=== PATIENT | male | born 1975 | race Asian ===

== ENCOUNTER 2020-04-30 09:32 | Observation (INO) | payer OTHER ==
[2020-04-30] MEDS ORDERED: ONDANSETRON 4 MG/2 ML VIAL IVP STA (09:44)
[2020-04-30] MEDS ORDERED: SODIUM CHLORIDE 0.9% 1,000 ML IV STA ×3 (09:44→13:12)
[2020-04-30 10:12] LABS: BASOPHILS # (AUTO) 0.1 10^3/uL (0.0-0.1); BASOPHILS % (AUTO) 0.4 %; EOSINOPHILS # (AUTO) 0.1 10^3/uL (0.0-0.7); EOSINOPHILS % (AUTO) 0.5 %; HGB - HEMOGLOBIN 16.1 g/dL (14.0-18.0); LYMPHOCYTES # (AUTO) 2.1 10^3/uL (1.5-3.5); MEAN CORPUSCULAR VOLUME 88.2 fL (80.0-94.0); MEAN PLATELET VOLUME 9.4 fL (7.4-11.4); MONOCYTES # (AUTO) 0.7 10^3/uL (0.0-1.0); NEUTROPHILS # (AUTO) 11.2 10^3/uL (1.5-6.6); NEUTROPHILS % (AUTO) 78.2 %; PLT - PLATELET COUNT 391 10^3/uL (130-450); RED BLOOD COUNT 5.36 10^6/uL (4.70-6.10); RED CELL DISTRIBUTION WIDTH 11.9 % (12.0-15.0); WHITE BLOOD COUNT 14.3 x10^3/uL (4.8-10.8)
[2020-04-30] MEDS ORDERED: PROMETHAZINE INJ 25 MG in SODIUM CHLORIDE 0.9% 50 ML IV STA (10:20)
[2020-04-30 10:26] LABS: ALBUMIN 3.4 g/dL (3.2-5.5); ALBUMIN/GLOBULIN RATIO 1.1 (1.0-2.2); BILIRUBIN,TOTAL 1.4 mg/dL (0.2-1.0); CALCIUM 8.7 mg/dL (8.5-10.3); CREATININE 1.1 mg/dL (0.6-1.2); TOTAL PROTEIN 6.6 g/dL (6.7-8.2)
--- NOTE | 2020-04-30 10:26 | ED Physician Documentation ---
History of Present Illness - Stated complaint Stated Complaint: VOMITING, SHAKES, RODRÍGUEZ - Chief complaint Chief Complaint: Abd Pain - History obtained from History obtained from: Patient - History of Present Illness Timing: How many days ago (3) Pain level max: 4 Pain level now: 3 - Additonal information Additional information: 45-year-old male presents the emergency department stating he has had intermittent nausea, vomiting, diarrhea for the past 3 days. Worse with eating and drinking. Nothing makes it better. He is diabetic. Has not been checking his blood sugar. He states he uses marijuana 1-2 times a week for anxiety and PTSD. No fevers. No recent travel. No blood in the emesis or stool. He st ates that he is just feeling poor overall. No fevers. Has had some chills. Review of Systems Ten Systems: 10 systems reviewed and negative Constitutional: reports: Chills. denies: Fever Ears: denies: Ear pain Nose: denies: Rhinorrhea / runny nose, Congestion Respiratory: denies: Cough GI: reports: Abdominal Pain (Crampy, diffuse), Nausea, Vomiting, Diarrhea. denies: Hematemesis, Bloody / black stool : denies: Dysuria, Frequency, Hesitancy Skin: denies: Rash Musculoskeletal: denies: Neck pain Neurologic: denies: Headache PD PAST MEDICAL HISTORY - Past Medical History Past Medical History: Yes Cardiovascular: Hypertension, High cholesterol Respiratory: None Neuro: None Endocrine/Autoimmune: Type 2 diabetes GI: None : None HEENT: None Psych: Depression, Anxiety, Post traumatic stress disorder Musculoskeletal: None Derm: None - Past Surgical History Past Surgical History: No - Present Medications Home Medications: Ambulatory Orders Medication Instructions Recorded Confirmed metFORMIN [Glucophage] 1,000 mg PO DAILY 04/30/20 04/30/20 - Allergies Allergies/Adverse Reactions: Allergies Allergy/AdvReac Type Severity Reaction Status Date / Time No Known Drug Allergies Allergy Verified 04/30/20 09:39 - Social History Does the pt smoke?: No Smoking Status: Former smoker Does the pt drink ETOH?: Yes Does the pt have substance abuse?: No - Immunizations Immunizations are current?: Yes - POLST Patient has POLST: No PD ED PE NORMAL - Vitals Vital signs reviewed: Yes - General General: Alert and oriented X 3, No acute distress, Well developed/nourished - HEENT HEENT: PERRL, Moist mucous membranes, Pharynx benign - Neck Neck: Supple, no meningeal sign - Cardiac Cardiac: RRR, Strong equal pulses - Respiratory Respiratory: No respiratory distress, Clear bilaterally - Abdomen Abdomen: Normal bowel sounds, Soft, Non tender, Non distended - Back Back: No CVA TTP, No spinal TTP - Derm Derm: Warm and dry - Extremities Extremities: No edema - Neuro Neuro: Alert and oriented X 3 - Psych Psych: Normal mood, Normal affect Results - Vitals Vitals: Vital Signs - 24 hr 04/30/20 04/30/20 04/30/20 09:40 10:01 11:30 Temperature 36.6 C 37 C Heart Rate 62 57 L 60 Respiratory 16 16 16 Rate Blood Pressure 156/77 H 171/95 H 148/92 H O2 Saturation 99 99 98 04/30/20 13:13 Temperature 37.2 C Heart Rate 108 H Respiratory 16 Rate Blood Pressure 154/89 H O2 Saturation 97 Oxygen O2 Source Room air - Labs Labs: Laboratory Tests 04/30/20 04/30/20 04/30/20 09:55 09:55 09:55 WBC 14.3 H RBC 5.36 Hgb 16.1 Hct 47.3 MCV 88.2 MCH 30.0 MCHC 34.0 RDW 11.9 L Plt Count 391 MPV 9.4 Neut # (Auto) 11.2 H Lymph # (Auto) 2.1 [place] # (Auto) 0.7 Eos # (Auto) 0.1 Baso # (Auto) 0.1 Absolute Nucleated RBC 0.00 Nucleated RBC % 0.0 VBG pH VBG pCO2 VBG pO2 VBG HCO3 VBG Total CO2 VBG O2 Saturation VBG Base Excess Sodium 131 L Potassium 3.7 Chloride 91 L Carbon Dioxide 26 Anion Gap 14.0 H BUN 24 H Creatinine 1.1 Estimated GFR (MDRD) 72 L Glucose 328 H Calcium 8.7 Total Bilirubin 1.4 H AST 21 ALT 22 Alkaline Phosphatase 50 Total Protein 6.6 L Albumin 3.4 Globulin 3.2 Albumin/Globulin Ratio 1.1 Lipase 43 Urine Color Urine Clarity Urine pH Ur Specific [place] Urine Protein Urine Glucose (UA) Urine Ketones Urine Occult Blood Urine Nitrite Urine Bilirubin Urine Urobilinogen Ur Leukocyte Esterase Urine RBC Urine WBC Ur Squamous Epith Cells Urine Bacteria Ur Microscopic Review Urine Culture Comments Serum Ketones NEGATIVE 04/30/20 04/30/20 10:35 12:35 WBC RBC Hgb Hct MCV MCH MCHC RDW Plt Count MPV Neut # (Auto) Lymph # (Auto) [place] # (Auto) Eos # (Auto) Baso # (Auto) Absolute Nucleated RBC Nucleated RBC % VBG pH 7.347 VBG pCO2 43.8 VBG pO2 28.0 VBG HCO3 24.0 VBG Total CO2 25.0 VBG O2 Saturation 48.0 L VBG Base Excess -2.0 Sodium Potassium Chloride Carbon Dioxide Anion Gap BUN Creatinine Estimated GFR (MDRD) Glucose Calcium Total Bilirubin AST ALT Alkaline Phosphatase Total Protein Albumin Globulin Albumin/Globulin Ratio Lipase Urine Color YELLOW Urine Clarity CLEAR Urine pH 5.5 Ur Specific [place] 1.025 Urine Protein >=300 H Urine Glucose (UA) 500 H Urine Ketones >=80 H Urine Occult Blood SMALL H Urine Nitrite NEGATIVE Urine Bilirubin NEGATIVE Urine Urobilinogen 0.2 (NORMAL) Ur Leukocyte Esterase NEGATIVE Urine RBC 6-10 H Urine WBC 11-25 H Ur Squamous Epith Cells RARE Squamous Urine Bacteria Rare Ur Microscopic Review INDICATED Urine Culture Comments INDICATED Serum Ketones - Rads (name of study) CT abdomen pelvis Radiology: Prelim report reviewed, EMP read contemporaneously, See rad report ( 1. No acute disease process. . No free fluid or free air. . Appendix is normal. . No dilated loops of bowel. ) PD MEDICAL DECISION MAKING - ED course Complexity details: reviewed results, re-evaluated patient, considered differential, d/w patient ED course: 45-year-old male with continued nausea and vomiting, complicated by hyperglycemia. Given Zofran, Phenergan, IV fluids. Continues to be unable to tolerate p.o. well. We will place him in observation given his diabetes and inability to tolerate p.o. No acute findings on CT scan. Discussed the case with Dr. Pruett, hospitalist who accepts This document was made in part using voice recognition software. While efforts are made to proofread this document, sound alike and grammatical errors may occur. Departure - Departure Disposition: ED Place in Observation Clinical Impression: Hyperglycemia due to diabetes mellitus, Dehydration, Viral gastroenteritis Intractable vomiting Qualifiers: Vomiting type: unspecified Nausea presence: with nausea Qualified Code(s): R11.2 - Nausea with vomiting, unspecified Condition: Stable Discharge Date/Time: 04/30/20 15:53
[2020-04-30 11:01] LABS: VBG PCO2 43.8 mmHg (41-51); VBG PH 7.347 (7.31-7.41)
[2020-04-30 12:46] LABS: BILIRUBIN,URINE NEGATIVE (NEGATIVE); GLUCOSE, URINE (UA) 500 mg/dL (NEGATIVE); KETONES,URINE (UA) >=80 mg/dL (NEGATIVE); LEUKOCYTE ESTERASE, URINE NEGATIVE (NEGATIVE); NITRITE,URINE NEGATIVE (NEGATIVE); OCCULT BLOOD,URINE SMALL (NEGATIVE); PH,URINE 5.5 PH (5.0-7.5); PROTEIN,URINE >=300 mg/dL (NEGATIVE); UROBILINOGEN,URINE 0.2 (NORMAL) E.U./dL (NORMAL)
[2020-04-30 12:48] LABS: CLARITY,URINE CLEAR (CLEAR)
[2020-04-30 13:01] LABS: BACTERIA,URINE Rare /HPF (None Seen); SQUAMOUS EPITHELIAL CELL,UR RARE Squamous (<= Few)
[2020-04-30] MEDS ORDERED: IOVERSOL 320 100 ML VIAL IVP ONE ×2 (13:26→14:40)
--- NOTE | 2020-04-30 14:16 | CT Report ---
PROCEDURE: Abdomen/Pelvis W INDICATIONS: diffuse abd pain, vomiting CONTRAST: IV CONTRAST: Optiray 320 ml: 100 PO CONTRAST: *NO PO CONTRAST TECHNIQUE: After the administration of oral and intravenous contrast, 5 mm thick sections acquired from the diap hragms to the symphysis. 5 mm thick coronal and sagittal reformats were acquired. For radiation dos e reduction, the following was used: automated exposure control, adjustment of mA and/or kV accordin g to patient size. COMPARISON: None. FINDINGS: Image quality: Degraded by patient motion artifact. ABDOMEN: Lung bases: Lung bases are clear. Heart size is normal. Solid organs: Liver and spleen are normal in size and enhancement. Gallbladder is within normal chavez its Biliary system is non dilated. Pancreas enhances normally. No adrenal nodules. Kidneys demons trate normal size and enhancement, without hydronephrosis. Peritoneum and bowel: Bowel loops demonstrate normal wall thickness and caliber. No free fluid or a ir. The appendix is normal. Nodes and vessels: No retroperitoneal or mesenteric adenopathy by size criteria. Aorta and inferior vena cava are normal in size. Miscellaneous: Small fat-containing umbilical hernia. PELVIS: Genitourinary: Bladder wall thickness is normal. Miscellaneous: No inguinal hernias or adenopathy. Bones: No suspicious bony lesions. No vertebral body compression fractures. Spine degenerative disc disease and facet arthropathy are noted. IMPRESSION: 1. No acute disease process. 2. No free fluid or free air. 3. Appendix is normal. 4. No dilated loops of bowel. Reviewed by: Chasity Harry MD, PhD on 04/30/2020 2:15 PM PDT Approved by: Chasity Harry MD, PhD on 04/30/2020 2:15 PM PDT Station ID: [id number]
[2020-04-30] MEDS ORDERED: cefTRIAXone 1 GM VIAL IVP STA (14:30)
[2020-04-30] MEDS ORDERED: PROCHLORPERAZINE 10 MG/2 ML VIAL IVP PRN (14:57)
[2020-04-30] MEDS ORDERED: SODIUM CHLORIDE FLUSH 0.9% 10 ML SYRINGE IVP PRN (14:57)
[2020-04-30] MEDS ORDERED: cefTRIAXone 1 GM VIAL IVP ONE (15:00)
--- NOTE | 2020-04-30 15:04 | HISTORY & PHYSICAL EXAMINATION ---
Chief Complaint - Chief Complaint Chief Complaint: Nausea and vomiting History of Present Illness - Admitted From Admitted From:: Home - History Obtained From Records Reviewed: Yes History obtained from: Patient, ER Physician, EMR - History of Present Illness HPI Comment/Other: This is a 45-year-old male with a past medical history significant for type 2 diabetes mellitus who presents today complaining of nausea and vomiting that began 3 days ago. He states he had steak and wine for dinner Wednesday evening and since then he has had multiple episodes of nonbloody emesis and nausea. He thought it may have been food or alcohol poisoning but his symptoms persisted and so he sought medical attention. He reports chills and muscle aches but no f carolyn at home. He is also been complaining of heartburn. He also reported some episodes of diarrhea. He has been out of his metformin and glipizide for the past week and he has not been checking his blood sugars over that period of time. He last checked it 1 week ago and it was in the low 200s. [place] so he is unable to get refills. 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 He reports no rash, dysuria, urgency, hematuria, neuropathy. His daughter tells me that he does binge drink alcohol at times and that is why they thought initially it was alcohol poisoning. The patient told the emergency department provider that he smokes marijuana 1-2 times a week. In the emergency department, he was given multiple doses of Zofran and Phenergan without improvement in his symptoms. Lab reveals a white count of 14.3. BUN was elevated at 24. His creatinine was 1.1 Blood glucose is elevated at 328. His urinalysis showed greater than 300 protein and greater than 80 ketones. He had 1125 WBCs and rare bacteria. Given the findings above, medicine was consulted for admission History - Past Medical History Cardiovascular: reports: Hypertension, High cholesterol Respiratory: reports: None Neuro: reports: None Endocrine/Autoimmune: reports: Type 2 diabetes GI: reports: None : reports: None HEENT: reports: None Psych: reports: Depression, Anxiety, Post traumatic stress disorder Musculoskeletal: reports: None Derm: reports: None MRSA Hx?: No - Family & Social History Family History Comment/Other: He reports his maternal grandfather had diabetes. He denies any other family history to his knowledge including heart disease or malignancies. 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 He has been living here on [address] since that period of time at home with his and 2 daughters. He quit smoking ab out 4 years ago. He reports social alcohol use although his daughter states he tends to drink a little more frequently and has episodes of binge drinking. Reports using marijuana 1-2 times a week. - POLST Patient has POLST: No Meds/Allgy - Home Medications Home Medications: Ambulatory Orders Medication Instructions Recorded Confirmed metFORMIN [Glucophage] 1,000 mg PO DAILY 04/30/20 04/30/20 - Allergies Allergies/Adverse Reactions: Allergies Allergy/AdvReac Type Severity Reaction Status Date / Time No Known Drug Allergies Allergy Verified 04/30/20 09:39 Review of Systems - Constitutional Constitutional: reports: Fatigue, Chills, Malaise, Weakness, Poor appetite. denies: Fever - Ears, Nose & Throat Ears, Nose & Throat: denies: Nasal discharge, Nasal congestion, Sore throat - Cardiovascular Cariovascular: denies: Chest pain, Exertional dyspnea, Decr. exercise tolerance - Respiratory Respiratory: denies: Cough, SOB at rest, SOB with exertion - Gastrointestinal Gastrointestinal: reports: Diarrhea, Change in bowel habits, Nausea, Vomiting, Reflux/heartburn. denies: Abdominal pain, Black stools, Bloody stools, Bile emesis - Genitourinary Genitourinary: denies: Dysuria, Frequency, Urgency, Hematuria - Musculoskeletal Musculoskeletal: reports: Muscle pain. denies: Muscle aches, Limited range of motion - Integumentary Integumentary: denies: Rash - Neurological Neurological: reports: General weakness, Headache. denies: Focal weakness, Numbness - All Other Systems All Other Systems: reports: Reviewed and negative Prior Level of Functionality: He is independent with his ADL's. Exam - Vital Signs Reviewed Vital Signs: Yes Vital Signs: Vital Signs x48h Temp Pulse Resp BP Pulse Ox 04/30/20 13:13 37.2 C 108 H 16 154/89 H 97 04/30/20 11:30 60 16 148/92 H 98 04/30/20 10:01 37 C 57 L 16 171/95 H 99 04/30/20 09:40 36.6 C 62 16 156/77 H 99 - Physical Exam General Appearance: positive: No acute distress, Alert Eyes Bilateral: positive: Normal inspection ENT: positive: ENT inspection nml, Dry mucous membranes. negative: No signs of dehydration Neck: positive: Nml inspection Respiratory: positive: No respiratory distress. negative: Wheezes, Rales, Rhonchi Cardiovascular: positive: No murmur, Tachycardia. negative: Regular rate & rhythm, Irregularly irregular, Bradycardia, Systolic murmur Abdomen: positive: Non-tender, No distention. negative: Tenderness, Guarding, Rebound Skin: positive: Warm, Dry Extremities: positive: Full ROM, No pedal edema Neurologic/Psychiatric: positive: Oriented x3, Motor nml Conclusion/Plan - Problem List (1) Intractable vomiting Conclusion/Plan: Suspect secondary to gastroenteritis. CT of the abdomen/pelvis was unremarkable . He does appear clinically dehydrated given his elevated BUN likely hemoconcentration. We will treat him with IV fluids and Zofran/Compazine as needed. Protonix IV. Place him on a clear liquid diet and advance as tolerated. Qualifiers: Vomiting type: unspecified Nausea presence: with nausea Qualified Code(s): R11.2 - Nausea with vomiting, unspecified (2) Type 2 diabetes mellitus with hyperglycemia, without long-term current use of insulin Conclusion/Plan: Presents the blood glucose greater than 300. He is on metformin alone at home. He does have urine ketones but serum ketones are negative. We will place him on Lantus 5 units this evening and sliding scale. Clear liquid diet and advance as tolerated. Check A1c. Will consider informatics educator consult based off his A1c. (3) Dehydration Conclusion/Plan: His BUN is slightly elevated and although there are no prior labs to compare to, I suspect he may be hemoconcentrated given elevated white count and upper normal hemoglobin. We will treat him with IV fluids and advance his diet as tolerated. (4) Urinary tract infection Conclusion/Plan: Urinalysis reveals 11-25 WBCs and rare bacteria. He received IV ceftriaxone [facility] which we will continue given his intractable nausea and vomiting. Will transition to oral antibiotics once he is able to take p.o. Follow-up urine culture. - Lab Results Lab results reviewed: Yes Fish Bones: 04/30/20 09:55 04/30/20 09:55 - Diagnostic Imaging Results Diagnostic Imaging Results: positive: Final report reviewed Core Measures - Anticipated LOS I expect patient to be DC'd or transferred within 96 hours.: Yes - Issues Hospital Issues and Management Plan: 45-year-old male with type 2 diabetes mellitus presents with intractable nausea and vomiting. Despite treatment with antiemetics in the emergency department, he is unable to tolerate oral intake. We will place him in observation for further management. - DVT/VTE - Prophylaxis VTE/DVT Device ordered at admit?: Yes VTE/DVT Prophylaxis med ordered at admit?: Yes
--- NOTE | 2020-04-30 15:44 | PHARMACY PROGRESS NOTE ---
- Best Possible Medication History Admit Date and Time: 04/30/20 1456 Processed by: Nursing Medication History completed: Yes As the person ultimately responsible for medication therapy, providers are able to order a medication from an existing home medication list in [facility] via the "Reconcile Routine" prior to Confirmation of that medication by support manager. Such practice is discouraged except when the physician, in their clinical judgment, deems that a medical need exists for a medication without regard to previous use.
[2020-04-30] MEDS: LACTATED RINGERS 1,000 ML IV SCH (16:04)
[2020-04-30] MEDS: ACETAMINOPHEN 325 MG TABLET PO PRN ×2 (16:25→23:46)
[2020-04-30] MEDS: INSULIN ASPART 300 UNIT/3 ML PEN SUBQ SCH ×2 (17:07→20:46)
[2020-04-30] MEDS: SODIUM CHLORIDE FLUSH 0.9% 10 ML SYRINGE IVP SCH ×3 (19:35→23:43)
[2020-04-30 20:47] LABS: MUDS CUTOFF CONCENTRATIONS CUTOFF CONC BELOW:
[2020-04-30] MEDS ORDERED: INSULIN GLARGINE 300 UNIT/3 ML PEN SUBQ SCH (21:00)
[2020-04-30 21:17] LABS: AMPHETAMINE SCREEN,URINE NEGATIVE (NEGATIVE); BENZODIAZEPINES SCREEN, URINE NEGATIVE (NEGATIVE); COCAINE SCREEN URINE NEGATIVE (NEGATIVE); METHADONE SCREEN, URINE NEGATIVE (NEGATIVE); METHAMPHETAMINES SCREEN, URINE NEGATIVE (NEGATIVE); OPIATE SCREEN, URINE NEGATIVE (NEGATIVE); OXYCODONE SCREEN, URINE NEGATIVE (NEGATIVE); PROPOXYPHENE SCREEN, URINE NEGATIVE (NEGATIVE); TRICYCLIC ANTIDEPRESSANT,URINE NEGATIVE (NEGATIVE)
[2020-04-30 22:00] LABS: CREATININE,URINE 54.6 mg/dL; MICROALBUMIN,URINE 125.8 mg/dL (0-300.0)
[2020-04-30] MEDS: ONDANSETRON 4 MG/2 ML VIAL IVP PRN (23:43)
[2020-05-01] MEDS: SODIUM CHLORIDE FLUSH 0.9% 10 ML SYRINGE IVP SCH ×2 (00:59→06:10)
[2020-05-01] MEDS ORDERED: LIDOCAINE VISCOUS 2% 15 ML UDC MM STA (01:18)
[2020-05-01] MEDS ORDERED: PROMETHAZINE INJ 25 MG in SODIUM CHLORIDE 0.9% 50 ML IV PRN (01:18)
[2020-05-01] MEDS ORDERED: MAG HYDROX/AL HYDROX/SIMETH 30 ML UDC PO STA (01:19)
[2020-05-01] MEDS: LACTATED RINGERS 1,000 ML IV SCH ×3 (01:49→12:05)
[2020-05-01 04:56] LABS: BASOPHILS # (AUTO) 0.1 10^3/uL (0.0-0.1); BASOPHILS % (AUTO) 0.6 %; EOSINOPHILS % (AUTO) 0.2 %; HGB - HEMOGLOBIN 14.1 g/dL (14.0-18.0); LYMPHOCYTES # (AUTO) 2.5 10^3/uL (1.5-3.5); LYMPHOCYTES % (AUTO) 30.5 %; MEAN CORPUSCULAR HEMOGLOBIN 30.1 pg (27.0-31.0); MEAN CORPUSCULAR HGB CONC 33.7 g/dL (32.0-36.0); MEAN CORPUSCULAR VOLUME 89.3 fL (80.0-94.0); MEAN PLATELET VOLUME 9.5 fL (7.4-11.4); MONOCYTES # (AUTO) 0.5 10^3/uL (0.0-1.0); MONOCYTES % (AUTO) 5.9 %; NEUTROPHILS % (AUTO) 62.3 %; PLT - PLATELET COUNT 341 10^3/uL (130-450); RED BLOOD COUNT 4.68 10^6/uL (4.70-6.10); RED CELL DISTRIBUTION WIDTH 11.9 % (12.0-15.0); WHITE BLOOD COUNT 8.1 x10^3/uL (4.8-10.8)
[2020-05-01 05:07] LABS: CALCIUM 7.9 mg/dL (8.5-10.3); CREATININE 0.8 mg/dL (0.6-1.2); MAGNESIUM 2.3 mg/dL (1.7-2.8); PHOSPHORUS 2.2 mg/dL (2.5-4.6)
[2020-05-01 05:12] LABS: HB2 TOTAL 14.9 g/dL; HEMOGLOBIN A1C 1.65 g/dL; HEMOGLOBIN A1C % 12.3 % (4.6-6.2)
[2020-05-01] MEDS ORDERED: PANTOPRAZOLE 40 MG VIAL IVP SCH (07:00)
[2020-05-01] MEDS ORDERED: MULTIVITAMIN TABLET PO SCH (08:00)
[2020-05-01] MEDS: INSULIN ASPART 300 UNIT/3 ML PEN SUBQ SCH ×2 (08:16→11:59)
[2020-05-01] MEDS ORDERED: lisinopriL 5 MG TABLET PO SCH (09:00)
[2020-05-01] MEDS ORDERED: THIAMINE 100 MG TABLET PO SCH (09:00)
[2020-05-01] MEDS ORDERED: cefTRIAXone 1 GM in SODIUM CHLORIDE 0.9% MINIBAG 100 ML IV SCH (09:00)
[2020-05-01] MEDS ORDERED: ENOXAPARIN 40 MG/0.4 ML SYRINGE SUBQ SCH (09:00)
--- NOTE | 2020-05-01 11:18 | Discharge Plan ---
Discharge Plan Problem Reviewed?: Yes Disposition: Home, Self Care Condition: Stable Prescriptions: Ciprofloxacin [Cipro] 500 mg PO Q12H #16 tablet Sitagliptin Phos/Metformin HCl [Janumet Xr 50-1,000 mg Tablet] 50 - 1,000 mg PO BID #28 tab Atorvastatin [Lipitor] 10 mg PO QPM #14 tab lisinopriL [Lisinopril] 40 mg PO DAILY #14 tab Pantoprazole [Protonix] 40 mg PO DAILY #14 tablet Ondansetron Odt [Zofran Odt] 4 mg TL Q6H PRN #10 tablet PRN Reason: Nausea / Vomiting Diet: Diabetic Activity Restrictions: Activity as Tolerated Health Concerns: You were seen in the hospital because of nausea and vomiting which is likely due to a stomach flu. Treated with nausea medication and IV fluids. Your symptoms have improved and you are now able to tolerate liquids and some food. You were also found to have a urinary tract infection and you are treated with antibiotics during this hospitalization. Your hemoglobin A1c is quite elevated at greater than 12% which shows that your diabetes is not well controlled. It is important that you follow-up with your primary care provider as you may benefit from insulin. Plan of Treatment: Please take ciprofloxacin 500 mg twice daily for 5 days beginning tomorrow May 02. You may take Zofran every 6 hours as needed for nausea. This was sent to your pharmacy. You were also provided with 14 days of refills for your lisinopril, Lipitor, Janumet. Please follow-up with your primary care provider for further refills. Care Goals: Please return to the emergency department if you develop any worsening fever, chills, abdominal pain, nausea, vomiting. Assessment: The patient and family expressed understanding of the treatment plan. Additional Instructions or Follow Up instructions: Please follow-up with your primary care provider next week as scheduled. It is important that you get your diabetes under control. No Smoking: If you smoke, Please STOP! Call for help. Follow-up with: LEE FLORES [Primary Care Provider] -
--- NOTE | 2020-05-01 11:27 | DISCHARGE SUMMARY ---
"Discharge Summary Admit Date: 04/30/20 Discharge Date: 05/01/20 Discharging Provider: Lazarus Pruett Primary Care Provider: El Durham Code Status: Attempt Resuscitation Condition at Discharge: Stable Discharge Disposition: 01 Home, Self Care - DIAGNOSES Admission Diagnoses: Intractable vomiting Type 2 diabetes mellitus with hyperglycemia, without long-term current use of insulin Dehydration Urinary tract infection Discharge Diagnoses with Status of Each Condition: Intractable vomiting - resolved. Type 2 diabetes mellitus with hyperglycemia, without long-term current use of insulin - stable. Dehydration - resolved. Urinary tract infection - improving. - HPI History of Present Illness: This is a 45-year-old male with a past medical history significant for type 2 diabetes mellitus who presents today complaining of nausea and vomiting that began 3 days ago. He states he had steak and wine for dinner Wednesday evening and since then he has had multiple episodes of nonbloody emesis and nausea. He thought it may have been food or alcohol poisoning but his symptoms persisted and so he sought medical attention. He reports chills and muscle aches but no fevers at home. He is also been complaining of heartburn. He also reported some episodes of diarrhea. He has been out of his metformin and glipizide for the past week and he has not been checking his blood sugars over that period of time. He last checked it 1 week ago and it was in the low 200s. [place] so he is unable to get refills. 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 He reports no rash, dysuria, urgency, hematuria, jonathan ropathy. His daughter tells me that he does binge drink alcohol at times and that is why they thought initially it was alcohol poisoning. The patient told the emergency department provider that he smokes marijuana 1-2 times a week. In the emergency department, he was given multiple doses of Zofran and Phenergan without improvement in his symptoms. Lab reveals a white count of 14.3. BUN was elevated at 24. His creatinine was 1.1 Blood glucose is elevated at 328. His urinalysis showed greater than 300 protein and greater than 80 ketones. He had 1125 WBCs and rare bacteria. Given the findings above, medicine was consulted for admission. - CONSULTS | PROCEDURES Consultations: EVELIO Lip Cutter - HOSPITAL COURSE Hospital Course: He was admitted to the floor for intractable nausea and vomiting which was suspected to be secondary to a viral gastroenteritis. He was also found to have a urinary tract infection during his hospitalization and was started on IV ceftriaxone. He was treated with IV fluids and antiemetics including Compazine and Zofran. He was able to tolerate a clear liquid diet without any further episodes of vomiting. He was transitioned to oral ciprofloxacin for 5 more days to complete 7 days of antibiotics for urinary tract infection. Urine culture is pending. His hemoglobin A1c was found to be elevated than 12%. He states that he was scheduled follow-up with his primary care provider to discuss the use of insulin. The RN resource development director was consulted and they evaluate the patient. He was discharged on his home regimen of metformin and sitagliptin and he was asked to follow-up with his primary care provider next week as scheduled. He was also provided with 14 tablets of Zofran to take as needed. - ALLERGIES Allergies/Adverse Reactions: Allergies Allergy/AdvReac Type Severity Reaction Status Date / Time No Known Drug Allergies Allergy Verified 04/30/20 09:39 - MEDICATIONS Home Medications: Ambulatory Orders Medication Instructions Recorded Confirmed Atorvastatin [Lipitor] 10 mg PO QPM #14 tab 05/01/20 Bupropion HCl [Bupropion Xl] 300 mg PO DAILY 05/01/20 05/01/20 Ciprofloxacin [Cipro] 500 mg PO Q12H #16 tablet 05/01/20 Cyclobenzaprine [Flexeril] 10 mg PO PRN PRN 05/01/20 05/01/20 Ondansetron Odt [Zofran Odt] 4 mg TL Q6H PRN #10 tablet 05/01/20 Pantoprazole [Protonix] 40 mg PO DAILY #14 tablet 05/01/20 Sitagliptin Phos/Metformin HCl 50 - 1,000 mg PO BID #28 tab 05/01/20 [Janumet Xr 50-1,000 mg Tablet] lisinopriL [Lisinopril] 40 mg PO DAILY #14 tab 05/01/20 - PHYSICAL EXAM AT DISCHARGE General Appearance: positive: No acute distress, Alert Eyes Bilateral: positive: Normal inspection ENT: positive: ENT inspection nml Neck: positive: Nml inspection Respiratory: positive: No respiratory distress. negative: Wheezes, Rales, Rhonchi Cardiovascular: positive: Regular rate & rhythm, No murmur. negative: Tachycardia, Bradycardia Abdomen: positive: Non-tender, No distention. negative: Tenderness, Guarding, Rebound Skin: positive: Warm, Dry Extremities: positive: Full ROM, No pedal edema Neurologic/Psychiatric: positive: Oriented x3, Motor nml. negative: Disoriented to person, Disoriented to place, Disoriented to time Physical Exam Other/Comments: Vital Signs - 24 hr 04/30/20 04/30/20 04/30/20 15:45 15:52 20:24 Temperature 37.2 C 36.9 C Heart Rate 71 Heart Rate [ 62 86 Brachial] Respiratory 14 16 20 Rate Blood Pressure 153/86 H Blood Pressure [Left Brachial artery] Blood Pressure 147/82 H 119/72 [Right Brachial artery] O2 Saturation 97 99 97 04/30/20 05/01/20 05/01/20 23:54 00:51 01:02 Temperature 36.9 C Heart Rate Heart Rate [ 64 62 62 Brachial] Respiratory 18 Rate Blood Pressure Blood Pressure 188/95 H 168/90 H 157/86 H [Left Brachial artery] Blood Pressure [Right Brachial artery] O2 Saturation 99 97 05/01/20 05/01/20 05/01/20 04:52 08:38 12:28 Temperature 36.9 C 37.0 C 37.1 C Heart Rate Heart Rate [ 66 59 L 68 Brachial] Respiratory 18 18 16 Rate Blood Pressure Blood Pressure 121/66 175/96 H 137/81 H [Left Brachial artery] Blood Pressure [Right Brachial artery] O2 Saturation 95 99 98 Oxygen O2 Source Room air - LABS Result Diagrams: 05/01/20 04:40 05/01/20 04:40 - FOLLOW UP Follow Up: He is scheduled to follow-up with his primary care provider next week. - TIME SPENT Time Spent in Discharge (Minutes): 30"
[2020-05-01] MEDS: ONDANSETRON 4 MG/2 ML VIAL IVP PRN (11:58)
[2020-05-01 12:29] VITALS: BP 137/81
[2020-05-01] MEDS ORDERED: INSULIN GLARGINE 300 UNIT/3 ML PEN SUBQ SCH (21:00)
== END 2020-05-01 14:15 | disposition home or self-care (01) ==
LOC: ED 09:32 → MS2 14:57
PROVIDERS: ADMIT Internal Medicine; ATTEND Internal Medicine
DX: R11.2 Nausea with vomiting, unspecified (principal); E11.65 Type 2 diabetes mellitus with hyperglycemia; E86.0 Dehydration; N39.0 Urinary tract infection, site not specified; T38.3X6A Underdosing of insulin and oral hypoglycemic [antidiabetic] drugs, initial encounter; I10 Essential (primary) hypertension; E78.00 Pure hypercholesterolemia, unspecified; F32.9 Major depressive disorder, single episode, unspecified; F41.9 Anxiety disorder, unspecified; F43.10 Post-traumatic stress disorder, unspecified; Z91.128 Patient's intentional underdosing of medication regimen for other reason; Y92.009 Unspecified place in unspecified non-institutional (private) residence as the place of occurrence of the external cause; Z91.19 Patient's noncompliance with other medical treatment and regimen; Z72.89 Other problems related to lifestyle; Z11.59 Encounter for screening for other viral diseases; Z79.84 Long term (current) use of oral hypoglycemic drugs; Z79.4 Long term (current) use of insulin; Z87.891 Personal history of nicotine dependence
CPT/HCPCS: 36415; 74177; 80048; 80053; 80306; 81001; 81599; 82009; 82043; 82570; 82803; 83036; 83690; 83735; 84100; 85025; 87086; 96361; 96365; 96367; 96372; 96375; 96376; 99285; A9270; G0378; J1650; J7040; J7120; Q9967; 81003

== ENCOUNTER 2023-03-14 11:20 | Emergency (ER) | payer OTHER ==
[2023-03-14] MEDS ORDERED: LIDOCAINE 2% 10 ML MDV SUBQ ONE (12:24)
[2023-03-14] MEDS ORDERED: lidocaine 1% 20 ML MDV ONE (12:35)
[2023-03-14] MEDS ORDERED: cephALEXin 250 MG CAPSULE PO STA (12:40)
[2023-03-14] MEDS ORDERED: SULFAMETH/TRIMETH DS 800/160 MG TABLET PO STA (12:40)
[2023-03-14] MEDS ORDERED: HYDROcod/ACETAM 5/325 MG TABLET PO STA (12:40)
--- NOTE | 2023-03-14 12:41 | ED Physician Documentation ---
History of Present Illness - Stated complaint Stated Complaint: BACK PX - Chief complaint Chief Complaint: Wound - History obtained from History obtained from: Patient - History of Present Illness Timing: How many days ago (several) Pain level max: 0 Pain level now: 0 - Additonal information Additional information: 47-year-old male presents to the emergency department with lower back pain. He states there is a wound at his lower back as well. He has a history of a MRSA abscess in the past but he states that that was several years ago. He states that the wound has been growing in size and becoming more painful. No fevers. No chills. Does not use any IV drugs. Worse with palpation, nothing makes it better. No loss of bowel or bladder control. Review of Systems Constitutional: denies: Fever, Chills PD PAST MEDICAL HISTORY - Past Medical History Past Medical History: Yes Cardiovascular: Hypertension, High cholesterol Respiratory: None Neuro: None Endocrine/Autoimmune: Type 2 diabetes GI: None : None HEENT: None Psych: Depression, Anxiety, Post traumatic stress disorder Musculoskeletal: None Derm: None - Past Surgical History Past Surgical History: No - Present Medications Home Medications: Ambulatory Orders Medication Instructions Recorded Confirmed Atorvastatin [Lipitor] 10 mg PO QPM #14 tab 05/01/20 03/14/23 Cyclobenzaprine [Flexeril] 10 mg PO PRN PRN 05/01/20 03/14/23 Pantoprazole [Protonix] 40 mg PO DAILY #14 tablet 05/01/20 03/14/23 buPROPion HCL [Bupropion Xl] 300 mg PO DAILY 05/01/20 03/14/23 lisinopriL [Lisinopril] 40 mg PO DAILY #14 tab 05/01/20 03/14/23 HYDROcod/ACETAM 5/325 [[place] 5/325] 1 - 2 ea PO Q6H PRN #14 tablet 03/14/23 Metformin HCl [Metformin ER 500 mg PO BID 03/14/23 03/14/23 Osmotic] Sulfamethox/Trimeth 800/160 1 each PO BID #14 tablet 03/14/23 [Bactrim Ds 800/160] cephALEXin [Keflex] 500 mg PO Q6H #28 cap 03/14/23 - Allergies Allergies/Adverse Reactions: Allergies Allergy/AdvReac Type Severity Reaction Status Date / Time No Known Drug Allergies Allergy Verified 03/14/23 11:27 - Social History Does the pt smoke?: No Smoking Status: Never smoker Does the pt drink ETOH?: Yes Does the pt have substance abuse?: No - Immunizations Immunizations are current?: Yes - POLST Patient has POLST: No PD ED PE NORMAL - Vitals Vital signs reviewed: Yes - General General: Alert and oriented X 3, No acute distress - Cardiac Cardiac: RRR - Respiratory Respiratory: No respiratory distress, Clear bilaterally - Abdomen Abdomen: Soft, Non tender, Non distended - Back Back: No spinal TTP, Other (2 x 2 centimeter indurated area near the L4-L5 area of the lumbar spine, superficial. Small purulent pointing head. Neurovascularly intact.) - Derm Derm: Warm and dry - Neuro Neuro: Alert and oriented X 3, No motor deficit, No sensory deficit, Other (Normal bilateral lower extremity patellar and ankle jerk reflexes. Normal great toe extension bilaterally. no saddle anesthesia) - Psych Psych: Normal mood, Normal affect Results - Vitals Vitals: Vital Signs - 24 hr 03/14/23 03/14/23 11:24 13:09 Temperature 36.9 C 37.5 C Heart Rate 102 H 107 H Respiratory 16 16 Rate Blood Pressure 146/84 H 156/96 H O2 Saturation 99 100 Oxygen O2 Source Room air - Labs Labs: Microbiology 03/14/23 12:35 Wound Culture - Preliminary Abscess Procedures - Abscess I&D (location) Low back Preparation: Confirmed with ultrasound, Chlorhexadine, Alcohol, Lidocaine 1% Incision: Incised with scalpel, Needle aspiration, Purulent drainage, Locu lations broken, Irrigated, Culture obtained Other: Pt tolerated well, Dressing applied, Antibiotic prescribed PD Medical Decision Making - ED course Complexity details: considered differential (No cauda equina, no spinal epidural abscess, no fracture, no aortic dissection or evidence of aneursym rupture), d/w patient ED course: 39-year-old male with a small abscess on his back. There was a small amount of purulent drainage. The wound is not large enough to pack. We will place on oral antibiotics for home. Patient is well-appearing, nontoxic. Afebrile. Patient counseled regarding signs and symptoms for which I believe and urgent re-evaluation would be necessary. Patient with good understanding of and agreement to plan and is comfortable going home at this time This document was made in part using voice recognition software. While efforts are made to proofread this document, sound alike and grammatical errors may occur. Departure - Departure Disposition: 01 Home, Self Care Clinical Impression: Abscess Condition: Good Instructions: ED Abscess IandD Follow-Up: your,doctor in 3 days for wound check [Other] Prescriptions: Sulfamethox/Trimeth 800/160 [Bactrim Ds 800/160] 1 each PO BID #14 tablet cephALEXin [Keflex] 500 mg PO Q6H #28 cap HYDROcod/ACETAM 5/325 [[place] 5/325] 1 - 2 ea PO Q6H PRN #14 tablet PRN Reason: Pain Comments: [facility] [place]. Please follow-up with your doctor in about 3 days for a wound check. Please return if you worsen. Take all antibiotics until gone. I am prescribing a short course of narcotic pain medication for you. These are potentially dangerous and addictive medications that should be used carefully. These medications may constipate you. Take an [id number] stool softener (docusate) twice daily with plenty of water while taking these medications. If you go 24 hours without a bowel movement, take [id number] miralax, per package instructions. Do not drink or drive while taking these medications. If you received narcotic or sedating medications while in the emergency department, do not drive for 24 hours. Store this medication in a safe, secure place and out of reach of children. It is a violation of federal law to give or sell this medication to another person or to use in a manner other than prescribed. The ED will not refill narcotic prescriptions, including prescriptions lost or stolen. To dispose of unwanted medications: 1. [facility] [address] in [place] has a medication drop box. They accept prescription medications (in pill form) Wednesday through Wednesday 9:00 a.m. to 5:00 p.m. 2. [facility] accepts prescription medications (in pill form only) for disposal year round. Call for more information. 3. Contact the [facility] for the next [facility] sponsored prescription drug collection event. , [phone], or [phone]; Discharge Date/Time: 03/14/23 13:10
[2023-03-14 13:10] VITALS: BP 156/96
--- NOTE | 2023-03-16 12:18 | ED Physician Documentation ---
ED Addendum - Addendum Addendum: 03/16/23 12:17 The patient's wound culture is coming back showing 3+ growth of Staph aureus. The sensitivities are not yet reported. He was. Scribed Bactrim and Keflex. I would continue these double coverage for now pending the final sensitivity report, presuming tomorrow.
== END 2023-03-14 13:10 | disposition home or self-care (01) ==
LOC: ED 11:20
DX: L02.212 Cutaneous abscess of back [any part, except buttock and flank] (principal); A49.01 Methicillin susceptible Staphylococcus aureus infection, unspecified site; I10 Essential (primary) hypertension; E78.00 Pure hypercholesterolemia, unspecified; E11.9 Type 2 diabetes mellitus without complications; Z79.899 Other long term (current) drug therapy; Z79.84 Long term (current) use of oral hypoglycemic drugs
CPT/HCPCS: 10060; 87070; 87181; 87205; 99283; A9270

== ENCOUNTER 2023-12-16 12:03 | Emergency (ER) | payer OTHER ==
[2023-12-16 12:33] LABS: BASOPHILS # (AUTO) 0.1 10^3/uL (0.0-0.1); BASOPHILS % (AUTO) 1.1 %; EOSINOPHILS # (AUTO) 0.1 10^3/uL (0.0-0.7); HCT - HEMATOCRIT 42.5 % (42.0-52.0); HGB - HEMOGLOBIN 13.9 g/dL (14.0-18.0); LYMPHOCYTES # (AUTO) 2.1 10^3/uL (1.5-3.5); MEAN CORPUSCULAR HEMOGLOBIN 29.3 pg (27.0-31.0); MEAN CORPUSCULAR HGB CONC 32.7 g/dL (32.0-36.0); MEAN CORPUSCULAR VOLUME 89.5 fL (80.0-94.0); MEAN PLATELET VOLUME 9.5 fL (7.4-11.4); MONOCYTES # (AUTO) 0.4 10^3/uL (0.0-1.0); NEUTROPHILS # (AUTO) 3.9 10^3/uL (1.5-6.6); NEUTROPHILS % (AUTO) 58.4 %; PLT - PLATELET COUNT 370 10^3/uL (130-450); RED BLOOD COUNT 4.75 10^6/uL (4.70-6.10); RED CELL DISTRIBUTION WIDTH 11.8 % (12.0-15.0); WHITE BLOOD COUNT 6.7 x10^3/uL (4.8-10.8)
[2023-12-16 12:49] LABS: ALBUMIN 3.4 g/dL (3.2-5.5); ALBUMIN/GLOBULIN RATIO 1.2 (1.0-2.2); BILIRUBIN,TOTAL 0.3 mg/dL (0.2-1.0); CALCIUM 9.2 mg/dL (8.5-10.3); CREATININE 1.5 mg/dL (0.6-1.3); POTASSIUM 5.2 mmol/L (3.5-4.5); TOTAL PROTEIN 6.3 g/dL (6.4-8.9)
--- NOTE | 2023-12-16 14:10 | ED Physician Documentation ---
History of Present Illness - Stated complaint Stated Complaint: HIGH POTASSIUM - Chief complaint Chief Complaint: General - Additonal information Additional information: 45-year-old male with type 2 diabetes and PTSD presents emergency department today for concerns of hyperkalemia. Patient says that he went to his primary care provider today for medication refill and routine check and they did routine labs and found him to have high potassium and sent him to the emergency department. Patient says he has had no chest pain no shortness of breath no fevers or chills he overall feels well aside from feeling some slight fatigue and rundown. He also says that he is about to run out of his metformin and so to prevent from doing so he has been cutting back on his medications including his metformin he supposed be taking at 1000 mg twice a day and he is only been taking 500 mg once a day. PD PAST MEDICAL HISTORY - Past Medical History Cardiovascular: Hypertension, High cholesterol Respiratory: None Neuro: None Endocrine/Autoimmune: Type 2 diabetes GI: None : None HEENT: None Psych: Depression, Anxiety, Post traumatic stress disorder Musculoskeletal: None Derm: None - Past Surgical History Past Surgical History: No - Present Medications Home Medications: Ambulatory Orders Medication Instructions Recorded Confirmed Atorvastatin [Lipitor] 10 mg PO QPM #14 tab 05/01/20 03/14/23 Cyclobenzaprine [Flexeril] 10 mg PO PRN PRN 05/01/20 03/14/23 buPROPion HCL [Bupropion Xl] 300 mg PO DAILY 05/01/20 03/14/23 lisinopriL [Lisinopril] 40 mg PO DAILY #14 tab 05/01/20 03/14/23 Metformin HCl [Metformin ER 1,000 mg PO BID 03/14/23 03/14/23 Osmotic] metFORMIN [Glucophage] 1,000 mg PO BID 30 Days #120 tablet 12/16/23 - Allergies Allergies/Adverse Reactions: Allergies Allergy/AdvReac Type Severity Reaction Status Date / Time No Known Drug Allergies Allergy Verified 12/16/23 12:19 - Social History Does the pt smoke?: No Smoking Status: Never smoker Does the pt drink ETOH?: Yes Does the pt have substance abuse?: No - Immunizations Immunizations are current?: Yes - POLST Patient has POLST: No PD ED PE NORMAL - Vitals Vital signs reviewed: Yes - General General: Alert and oriented X 3, No acute distress, Well developed/nourished - HEENT HEENT: Atraumatic, PERRL - Neck Neck: Supple, no meningeal sign - Cardiac Cardiac: RRR, No murmur, No gallop - Respiratory Respiratory: No respiratory distress, Clear bilaterally - Abdomen Abdomen: Normal bowel sounds, Soft, Non tender - Derm Derm: Normal color, Warm and dry, No rash - Extremities Extremities: No deformity, No edema, No calf tenderness / cord - Neuro Neuro: Alert and oriented X 3, intelligence director 2-12 intact, No motor deficit, Normal speech Eye Opening: Spontaneous Motor: Obeys Commands Verbal: Oriented GCS Score: 15 - Psych Psych: Normal mood Results - Vitals Vitals: Vital Signs - 24 hr 12/16/23 12/16/23 12/16/23 14:05 16:00 17:38 Temperature 36.7 C 37.1 C Heart Rate 98 105 H 96 Respiratory 17 17 14 Rate Blood Pressure 132/102 H 122/80 133/82 H O2 Saturation 96 96 95 Oxygen O2 Source Room air - Labs Labs: Laboratory Tests 12/16/23 12/16/23 12/16/23 12:29 12:29 16:14 WBC 6.7 RBC 4.75 Hgb 13.9 L Hct 42.5 MCV 89.5 MCH 29.3 MCHC 32.7 RDW 11.8 L Plt Count 370 MPV 9.5 Neut # (Auto) 3.9 Lymph # (Auto) 2.1 [place] # (Auto) 0.4 Eos # (Auto) 0.1 Baso # (Auto) 0.1 Absolute Nucleated RBC 0.00 Nucleated RBC % 0.0 Sodium 129 L 136 Potassium 5.2 H 4.0 Chloride 93 L 104 Carbon Dioxide 29 24 Anion Gap 7.0 8.0 BUN 24 H 28 H Creatinine 1.5 H 1.1 Estimated GFR (MDRD) 50 L 71 L Glucose 525 H* 131 H POC Whole Bld Glucose Calcium 9.2 8.8 Total Bilirubin 0.3 AST 10 ALT 13 Alkaline Phosphatase 61 Total Protein 6.3 L Albumin 3.4 Globulin 2.9 Albumin/Globulin Ratio 1.2 Lipase 145 H 12/16/23 16:24 WBC RBC Hgb Hct MCV MCH MCHC RDW Plt Count MPV Neut # (Auto) Lymph # (Auto) [place] # (Auto) Eos # (Auto) Baso # (Auto) Absolute Nucleated RBC Nucleated RBC % Sodium Potassium Chloride Carbon Dioxide Anion Gap BUN Creatinine Estimated GFR (MDRD) Glucose POC Whole Bld Glucose 118 H Calcium Total Bilirubin AST ALT Alkaline Phosphatase Total Protein Albumin Globulin Albumin/Globulin Ratio Lipase PD Medical Decision Making - ED course ED course: 48-year-old gentleman presents emergency department for hyperkalemia. Labs are complete CBC shows mild anemia, hemoglobin 13.9. Chemistry: Hyponatremia, sodium 129, hyperkalemia, potassium 5.2, BUN 24, creatinine 1.5, GFR 50 with a blood glucose of 525. Lipase also slightly elevated at 145 patient without any abdominal pain or tenderness. Patient was given 1 L of IV fluids and 10 units IV regular insulin to help with his hyperkalemia,, kidney function, hyperglycemia. Patient reports his fatigue that he was experiencing upon initial arrival to the emergency department has almost entirely resolved. Repeat CMP does show slightly improved kidney function, with creatinine resolving at 1.1, BUN did slightly go up at 28, but GFR also improved at 71. Repeat blood sugar was 131. Patient continues to deny any chest pain or shortn ess of breath, EKG warranted at this time. Patient was given a refill of his metformin sent to his preferred pharmacy he was told to check again with his primary care provider to have repeat labs and follow-up about managing his type 2 diabetes at home. He is given strict ER return precautions. Departure - Departure Disposition: 01 Home, Self Care Clinical Impression: Hyperkalemia, CHELLY (acute kidney injury), Hyponatremia, Hyperglycemia Instructions: Diabetes Type 2 Oral Meds, ED Potassium Excess Prescriptions: metFORMIN [Glucophage] 1,000 mg PO BID 30 Days #120 tablet Comments: Thank you for trusting us with your care. It is very important that you do follow-up with your primary care provider again let them know that we have corrected your hyperkalemia also known as high potassium. Your blood sugar is quite elevated today and recommend making sure that you are checking her blood sugar going home and taking her metformin as prescribed. I have sent a refill to your preferred pharmacy so that you are able to take it as prescribed to help with your high blood sugar. I would also strongly recommend addressing her PTSD getting back into some sort of sleeping to help with your PTSD. Please come back to the emergency department for having any chest pain, shortness of breath, or any other concerning symptoms. Wishing a speedy recovery. Forms: PCP List Discharge Date/Time: 12/16/23 17:46
[2023-12-16] MEDS: SODIUM CHLORIDE 0.9% 1,000 ML IV ONE (14:46)
[2023-12-16] MEDS: INSULIN REGULAR HUMAN 300 UNIT/3 ML VIAL IVP STA (14:56)
[2023-12-16 16:35] LABS: CALCIUM 8.8 mg/dL (8.5-10.3); CREATININE 1.1 mg/dL (0.6-1.3)
[2023-12-16 17:47] VITALS: BP 133/82; O2SAT 95
== END 2023-12-16 17:46 | disposition home or self-care (01) ==
LOC: ED 12:03
DX: E87.5 Hyperkalemia (principal); N17.9 Acute kidney failure, unspecified; E87.1 Hypo-osmolality and hyponatremia; E11.65 Type 2 diabetes mellitus with hyperglycemia; Z79.84 Long term (current) use of oral hypoglycemic drugs; I10 Essential (primary) hypertension; E78.00 Pure hypercholesterolemia, unspecified; F43.10 Post-traumatic stress disorder, unspecified; Z79.899 Other long term (current) drug therapy
CPT/HCPCS: 36415; 80048; 80053; 83690; 85025; 96360; 96361; 99283; 99284; J1815